=== PATIENT | male | born 2000 | race African-American/Black ===

== ENCOUNTER 2023-01-03 06:09 | Emergency (ER) | payer OTHER, SELFPAY ==
[2023-01-03 06:15] VITALS: BP 137/74; PULSE 74; RESP 18; TEMP 36.6; O2SAT 100; BMI 31.1
--- NOTE | 2023-01-03 06:28 | DI.RAD.S_ITS ---
PROCEDURE: XR FOOT LT MIN 3V INDICATIONS: twisted left foot playing football,has heeel pain TECHNIQUE: 3 views of the foot were acquired. COMPARISON: None. FINDINGS: Bones: No fractures or dislocations. No suspicious bony lesions. Soft tissues: No tibiotalar joint effusion. Achilles tendon appears normal. IMPRESSION: No acute osseous abnormality. If clinical symptoms persist or clinical suspicion for pathology is high, a repeat examination in 7-10 days, or advanced imaging such as CT or MRI is suggested for further evaluation. No significant discrepancy with the director broadcast radiology preliminary report. Dictated by: Laura Terrazas M.D. on 01/03/2023 at 8:45 Approved by: Laura Terrazas M.D. on 01/03/2023 at 8:46
--- NOTE | 2023-01-03 06:39 | ED.LOWEXIN ---
HPI - Extremity Injury (Lower) General Chief Complaint: Extremity Injury, Lower Stated Complaint: lt foot injury from football Time Seen by Provider: 01/03/23 06:25 Source: patient Mode of arrival: Ambulatory History of Present Illness HPI Narrative: 22-year-old male occasionally vapes without chronic medical history presents for evaluation of left foot and heel pain. He was playing football yesterday when he planted his foot and twisted looking over his left shoulder and now has significant pain is unable to weightbear. He states the primary location of pain is his heel, he denies any ankle, rockwell or knee pain. Denies any numbness, tingling or weakness. Review of Systems Review of Systems Narrative: GENERAL: Denies chills, fatigue, malaise, fever, sweats. HEENT: Denies sinus pain, ear pain, sore throat, difficulty swallowing, dizziness. RESPIRATORY: Denies dyspnea, cough, wheezing, hemoptysis, sputum. CARDIOVASCULAR: Denies chest pain, palpitations, orthopnea, edema, GASTROINTESTINAL: Denies nausea, vomiting, abdominal pain, diarrhea, constipation, melena. : Denies dysuria, frequency, incontinence, hematuria, urinary retention. MUSCULOSKELETAL: See HPI SKIN: Denies rash, skin lesions, or other NEUROLOGIC: Denies weakness, headache, numbness, change in speech, confusion, seizures, incoordination. PSYCHIATRIC: No concerning psychosocial issues. 12 point review of systems is negative except for those stated above Patient History tobacco type: vaping alcohol intake frequency: a few times a month Substance Use Type: does not use Exam Narrative Exam Narrative: GEN: AOx3 and in mild distress EYES: Pupils are equal, round, and reactive to light and accommodation. Extraoccular muscles are intact bilaterally. There is no subconjunctival hemorrhage or exudate. CHEST: Lungs are clear to auscultation bilaterally and free of wheezes, rales, or rhonchi. Heart rate is regular rhythm, there are no murmurs, clicks, rubs, or gallops. There is no chest wall tenderness. ABD: Abdomen is soft and nontender. There is no guarding or rebound. Bowel sounds are normal in all 4 quadrants. There is no mass or organomegaly. EXT: Full but painful range of motion of left foot and ankle, no obvious external manifestation of injury. He is exquisitely tender on the plantar surface just anterior to the calcaneus, no crepitance, no breaks in the skin, erythema or warmth. SKIN: Warm, pink, and dry. No erythema or rash Initial Vital Signs Initial Vital Signs: Vital Signs Temperature 97.8 F 01/03/23 06:15 Pulse Rate 74 01/03/23 06:15 Respiratory Rate 18 01/03/23 06:15 Blood Pressure 137/74 01/03/23 06:15 Pulse Oximetry 100 01/03/23 06:15 Oxygen Delivery Method Room Air 01/03/23 06:15 Procedures Orthopedic Splinting/Casting Injury #1: Side: left Lower Extremity Injury Location: ankle and foot Lower Extremity Immobilizer: boot orthosis Other Orthopedic Equipment: crutches Post splinting neuro exam: intact Post splinting vascular exam: intact Placed by: Nursing Course Orders Ordered: ED Orders 01/03/23 06:28 XR foot LT min 3V Stat Vital Signs Vital signs: Vital Signs - 8 hr 01/03/23 06:15 Temperature 97.8 F Pulse Rate 74 Respiratory Rate 18 Blood Pressure 137/74 Pulse Oximetry 100 Oxygen Delivery Method Room Air MDM - Extremity Injury (Lower) MDM Narrative Medical decision making narrative: [22] year old patient presents with left heel pain after football injury Multiple etiologies for patient's symptoms considered including, but not limited to: [Calcaneal fracture versus contusion versus soft tissue injury versus other] Prior Charts reviewed in our EMR Primary Historian: patient Imaging reviewed: No obvious fracture History and physical exam are reassuring, not high velocity trauma, however there is significant pain on palpation, no obvious findings on x-ray, we will err on the side of caution and splint, advised use of crutches and weight-bearing as tolerated until follow-up. Findings and discharge diagnosis discussed with patient/family followed by verbalization of understanding Return precautions discussed with patient/family whom verbalize understanding of diagnosis and plan Discharge Plan Departure Patient Disposition: Home Clinical Impression: Inflammatory pain of left heel Instructions: DI for Foot Pain Activity Restrictions/Additional Instructions: *You have been diagnosed with [Left heel pain. As we discussed your history and physical exam are reassuring in the injuries most likely soft tissue, there was no obvious injury on the x-ray.] *What to do: *Please continue to take your regular medications as directed. [ ] New medication prescriptions sent to your pharmacy: [ ] [ ] New medication written as a paper prescription [x] Tylenol and occasional Motrin for pain *Please follow up with [ Cindy] of [facility] in 2-3 days, call for an appointment. Let them know you were seen in the Emergency Department and that we ask that you be seen in follow up. We will electronically transmit a record of today's note if your PCP is in our system *Return to Emergency Department if you should have any new, worsening or concerning symptoms, such as [worsening pain, significant swelling, cold extremities, numbness, tingling, weakness or other bothersome symptoms Weight bearing as tolerated until follow up Radiographic study has been interpreted by an emergency physician. The official diagnosis by radiology will be performed within the next 24 hours and should there be any change in outcome we will notify you of how to proceed. Referrals: ProviderJong [Primary Care Provider] - Stand Alone Forms: Patient Portal/API
== END 2023-01-03 07:05 | disposition home or self-care (01) ==
PROVIDERS: Emergency Provider Emergency Medicine
DX: M79.672 Pain in left foot (principal); X58.XXXA Exposure to other specified factors, initial encounter; Y93.61 Activity, american tackle football
CPT/HCPCS: 73630; 99283

== ENCOUNTER → 2024-05-27 07:37 | Outpatient (CLI) | payer OTHER, SELFPAY ==
--- NOTE | 2024-05-27 07:39 | DI.MRI.S_ITS ---
PROCEDURE: MR KNEE RT WO CON INDICATIONS: PAIN IN RIGHT KNEE TECHNIQUE: Noncontrast sagittal PD fast spin echo and T2 fast spin echo with fat saturation, sagittal 3-D FLASH with fat saturation; coronal T1 spin echo and PD fast spin echo with fat saturation, and axial PD fast spin echo with fat saturation through the knee. COMPARISON: None. FINDINGS: Image quality: Diagnostic Menisci: Medial: No significant tear. There is mild edema at the meniscal capsular junction at the posterior horn. Lateral: There is a tiny oblique tear at the free edge in the body (/). Cruciate ligaments: Intact Medial structures: MCL: Intact Pes anserine tendons: Intact Semimembranosus: Intact Lateral structures: LCL: Mild proximal edema Biceps femoris: Intact IT band: Intact Popliteus tendon: Mild insertional tendinopathy Anterior structures: Extensor mechanism: Tibial tuberosity enthesopathy, moderate. Patellar enthesopathy also seen. There is no acute edema Fat pads: Minimal edema at the superolateral corner of Hoffa's fat pad Medial retinaculum: Intact. Trochlea: Lateral patellar tilt is seen. The TT TG distance is borderline at 1.4 cm Bone and joint: Bones: T2 hyperintense lesion is seen in the lateral tibial plateau, which could represent an enchondroma. In addition, focal mild edema is seen at the lateral femoral condyle (01/14) Cartilage: Mild heterogeneity of the lateral patellar cartilage. There is moderate thinning of the lateral patellar cartilage underlying the femoral condyle edematous region (). Joint space: Small joint effusion Burnett's cyst: None Soft tissues: No significant vascular or other soft tissue pathology. IMPRESSION: There is focal edema in the lateral femoral condyle. Adjacent cartilage flattening and moderate loss is seen. (10/, /) This may represent a partial osteochondral lesion, correlate with location of clinical symptoms. T2 hyperintense region at the lateral tibial plateau might be unrelated, differential includes enchondroma. If there is worsening clinical concern, consider future follow-up MR to assess for any progression of the above findings. Tiny oblique tear at the free edge of the lateral meniscus () Borderline TT TG distance. Slight lateral patellar tilt. Minimal edema at the superolateral aspect of Hoffa's fat pad. Correlate clinically for patellofemoral friction symptoms. Mild popliteus insertional tendinopathy and mild sprain of the proximal LCL Enthesopathy of the extensor mechanism. Mild joint effusion. Dictated by: Jc Alamo M.D. on 05/27/2024 at 15:09 Approved by: Jc Alamo M.D. on 05/27/2024 at 15:17
== END ==
PROVIDERS: Referring Provider Nurse Practitioner Family; Visit Provider Nurse Practitioner Family
DX: S83.421A Sprain of lateral collateral ligament of right knee, initial encounter (principal); M89.9 Disorder of bone, unspecified; M25.561 Pain in right knee; M25.461 Effusion, right knee
CPT/HCPCS: 73721